=== PATIENT | female | born 1995 | race Hispanic/Latino ===

== ENCOUNTER 2023-03-19 11:51 | Emergency (ER) | payer OTHER ==
[~2023-03-19] VITALS: Ht 160 cm; Wt 81.6 kg
[2023-03-19] MEDS ORDERED: KETO10TA2 PO (15:55)
[2023-03-19 16:00] VITALS: BP 128/74
== END 2023-03-19 16:26 | disposition home or self-care (01) ==
LOC: EDH 11:51
DX: M54.50 Low back pain, unspecified (principal)
CPT/HCPCS: 72131; 81025